=== PATIENT | female | born 1995 | race Caucasian/White ===

== ENCOUNTER 2017-12-29 18:02 | Emergency (ER) | payer OTHER ==
[~2017-12-29] VITALS: Ht 167.6 cm; Wt 43.5 kg
[2017-12-29 18:15] VITALS: Ht 167.6 cm; Wt 43.5 kg
[2017-12-29 18:55] LABS: BASOPHIL % 0.4 % (0-2); PLATELET COUNT 254 x10^3mcL (130-400); RED CELL DISTRIBUTION WIDTH 12.5 % (11.5-14.5)
[2017-12-29 18:59] LABS: CARBON DIOXIDE 27.3 mmol/L (21-32); CHLORIDE SERUM 105 mmol/L (98-107); CREATININE SERUM 0.7 mg/dL (0.6-1.0); GFR1 > 60 mL/min; GLUCOSE SERUM 95 mg/dL (74-106); POTASSIUM SERUM 3.8 mmol/L (3.5-5.1); SODIUM SERUM 141 mmol/L (136-145)
[2017-12-29 19:03] LABS: ALBUMIN 3.9 g/dL (3.4-5.0); ALKALINE PHOSPHATASE 63 U/L (46-116); ALT/SGPT 12 U/L (14-59); AMYLASE 42 U/L (25-115); AST/SGOT 14 U/L (15-37); BILIRUBIN TOTAL 1.1 mg/dL (0.20-1.00); LIPASE 114 IU/L (73-393); TOTAL PROTEIN, SERUM 7.5 g/dL (6.4-8.2)
[2017-12-29 21:13] VITALS: BP 118/80
== END 2017-12-29 21:13 | disposition home or self-care (01) ==
LOC: ED 18:02
PROVIDERS: Specialist
DX: N83.9 Noninflammatory disorder of ovary, fallopian tube and broad ligament, unspecified (principal); K59.00 Constipation, unspecified
CPT/HCPCS: J1885; J3010; Q0162